=== PATIENT | female | born 1990 | race Caucasian/White ===

== ENCOUNTER → 2016-09-08 11:03 | Emergency (ER) | payer OTHER ==
[~2016-09-08 11:03] MED LIST: PEN-VEE K PO
== END | disposition home or self-care (01) ==
LOC: SED 11:03
DX: K05.219 Aggressive periodontitis, localized, unspecified severity (principal); F17.200 Nicotine dependence, unspecified, uncomplicated; Z88.1 Allergy status to other antibiotic agents
CPT/HCPCS: 99282